=== PATIENT | male | born 2000 | race Hispanic/Latino ===

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

== ENCOUNTER 2021-06-17 04:51 | Emergency (ER) | payer BC, SELFPAY ==
[2021-06-17] MEDS ORDERED: Lorazepam 2 MG/ML VIAL ONE (04:58)
[2021-06-17 05:17] LABS: #Basophils 0.1 thou/uL (0.0-0.2); #Lymphocytes 2.5 thou/uL (1.20-3.40); #Monocytes 0.6 thou/uL (0.11-0.59); #Neutrophils 6.7 thou/uL (1.40-6.50); %Basophils 0.5 % (0.0-1.0); %Eosinophils 0.5 % (0.0-10.0); %Lymphocytes 25.1 % (28.0-48.0); %Monocytes 6.5 % (0.0-4.0); %Neutrophils 67.4 % (31.0-61.0); Hemoglobin 17.3 g/dL (14.0-18.0); Mean Corpuscular HGB CONC 34.8 g/dL (32.0-36.0); Mean Corpuscular Volume 94.7 fL (78.0-98.0); Mean Platelet Volume 8.5 fL (7.4-10.4); Platelet Count 264 thou/uL (130-400); RBC Distribution Width 11.5 % (11.5-14.5); Red Blood Cell (RBC) Count 5.23 mill/uL (4.00-5.20); White Blood Cell (WBC) Count 9.9 thou/uL (4.8-10.8)
[2021-06-17 05:38] LABS: ALT (SGPT) 27 U/L (8-55); AST (SGOT) 20 U/L (10-45); Albumin 4.7 g/dL (3.5-5.0); Alcohol 220 mg/dL (Less than 10); Alkaline Phosphatase 110 U/L (50-130); Anion Gap 14 mmol/L (10-20); BUN (Urea Nitrogen) 4 mg/dL (8.4-21.0); Bilirubin, Total 0.3 mg/dL (0.2-1.2); Calc. Creatinine Clearance 0 mL/min (70-130); Calcium 9.8 mg/dL (7.8-10.44); Carbon Dioxide 26 mmol/L (22-29); Chloride 107 mmol/L (98-107); Globulin 3.6 g/dL (2.4-3.5); Glucose 118 mg/dL (70-105); Potassium 4.1 mmol/L (3.5-5.1); Protein, Total 8.3 g/dL (6.0-8.3); Sodium 143 mmol/L (136-145)
[2021-06-17 05:44] LABS: Bilirubin Negative (Negative); Blood, Urine Negative (Negative); Clarity Clear (Clear); Glucose, Urine (Dipstick) Normal (Negative); Ketone, Urine Negative (Negative); Leukocyte Negative Leu/uL (Negative); Nitrite Negative (Negative); Protein, Urine (Dipstick) Negative (Neg-Trace); Specific Gravity, Urine 1.006 (1.002-1.036); Urobilinogen Normal mg/dL (Less than 2)
[2021-06-17 05:52] LABS: Amphetamine Not Detected (NotDetected); Barbiturates Screen Not Detected (NotDetected); Benzodiazepine Screen Not Detected (NotDetected); Cocaine Metabolite Screen Detected (NotDetected); Methadone Not Detected (NotDetected); Methamphetamine Not Detected (NotDetected); Opiate Screen Not Detected (NotDetected); Oxycodone Screen Not Detected (NotDetected); Phencyclidine (PCP) Not Detected (NotDetected); THC/Cannabinoid Screen Not Detected (NotDetected); Tricyclic Screen Not Detected (NotDetected)
[2021-06-17] MEDS ORDERED: Iopamidol-370 76% 500 ML 1 ML ONE (12:27)
== END 2021-06-17 06:00 | disposition home or self-care (01) ==
LOC: ERS 04:51
DX: F10.129 Alcohol abuse with intoxication, unspecified (principal); F14.10 Cocaine abuse, uncomplicated; R41.82 Altered mental status, unspecified; V89.2XXA Person injured in unspecified motor-vehicle accident, traffic, initial encounter
CPT/HCPCS: 70450; 71045; 71260; 72125; 74177; 80053; 80306; 80307; 81003; 85025; 96374; J2060; Q9967

== ENCOUNTER 2022-09-20 09:05 | Outpatient (CLI) | payer OTHER | END 2022-09-20 09:06 | disposition home or self-care (01) | LOC: SCSMRI 09:05 | PROVIDERS: ATTEND Family Medicine | DX: M23.91 Unspecified internal derangement of right knee (principal); S83.211A Bucket-handle tear of medial meniscus, current injury, right knee, initial encounter ==

== ENCOUNTER 2022-10-24 07:27 | Day surgery (SDC) | payer OTHER ==
[2022-10-24] MEDS ORDERED: PROPOFOL 20 ML ONE (09:01)
[2022-10-24] MEDS ORDERED: Ropivacaine 0.5% HCl/PF (150 MG/30 ML VIAL) ONE ×2 (09:01→10:30)
[2022-10-24] MEDS ORDERED: Fentanyl 100 MCG/2 ML VIAL ONE (10:00)
[2022-10-24] MEDS ORDERED: Sodium Chloride 0.9% 100 ML ONE (10:15)
[2022-10-24] MEDS ORDERED: CEFAZOLIN 2 GM VIAL ONE (10:15)
[2022-10-24] MEDS ORDERED: Acetaminophen 500 MG TAB ONE (10:18)
[2022-10-24] MEDS ORDERED: Lidocaine 1% PF 5 ML VIAL ONE (10:30)
[2022-10-24] MEDS ORDERED: Ketorolac Tromethamine 30 MG/ML VIAL ONE (10:30)
[2022-10-24] MEDS ORDERED: Ondansetron PF 4 MG/2 ML Vial ONE (10:30)
[2022-10-24] MEDS ORDERED: PROPOFOL 200 MG/20 ML VIAL ONE (10:30)
[2022-10-24] MEDS ORDERED: Dexamethasone 20 MG/5 ML VIAL ONE (10:30)
[2022-10-24] MEDS ORDERED: oxyCODONE 5 MG TAB ONE (12:23)
== END 2022-10-24 12:55 | disposition home or self-care (01) ==
LOC: SDC 07:27
PROVIDERS: ATTEND Orthopaedic Surgery
PROC: 0SBC4ZZ Excision of Right Knee Joint, Percutaneous Endoscopic Approach (ICD-10-PCS; principal; 2022-10-24)
DX: S83.211A Bucket-handle tear of medial meniscus, current injury, right knee, initial encounter (principal); F17.200 Nicotine dependence, unspecified, uncomplicated; Z98.890 Other specified postprocedural states
CPT/HCPCS: J1100; J1885; J2405; J2704; J2795; J3010; J3490